=== PATIENT | female | born 1985 | race Caucasian/White ===

== ENCOUNTER 2021-08-17 12:02 | Emergency (ER) | payer MEDICAID ==
[~2021-08-17] VITALS: Ht 175.3 cm; Wt 77.3 kg
[2021-08-17 12:03] VITALS: BP 100/63
[2021-08-17 12:20] LABS: BASOPHILS % (AUTO) 0.5 % (0-1); EOSINOPHILS # (AUTO) 0.2 X10'3 (0-0.9); EOSINOPHILS % (AUTO) 3.1 % (0-6); HEMATOCRIT 42.8 % (35.0-45.0); HEMOGLOBIN 14.3 g/dl (12.0-16.0); LYMPHOCYTES # (AUTO) 2.3 X10'3 (1.1-4.8); LYMPHOCYTES % (AUTO) 38.1 % (21-51); MEAN CORPUSCULAR HEMOGLOBIN 30.3 PG (27.0-31.0); MEAN CORPUSCULAR HGB CONC 33.5 g/dL (33.0-36.5); MEAN CORPUSCULAR VOLUME 90.4 FL (78-98); MEAN PLATELET VOLUME 7.3 FL (7.4-10.4); MONOCYTES # (AUTO) 0.4 X10'3 (0-0.9); MONOCYTES % (AUTO) 6.4 % (2-12); NEUTROPHILS # (AUTO) 3.1 X10'3 (1.8-7.7); NEUTROPHILS % (AUTO) 51.9 % (42-75); PLATELET COUNT 254 X10'3 (140-440); RED BLOOD COUNT 4.73 X10'6 (4.20-5.60); RED CELL DISTRIBUTION WIDTH 12.7 % (11.5-14.5)
[2021-08-17 12:38] LABS: ALANINE AMINOTRANSFERASE 18 U/L (12-78); ALBUMIN 3.3 G/DL (3.4-5.0); ALKALINE PHOSPHATASE 51 IU/L (46-116); ANION GAP 5 (8-16); ASPARTATE AMINO TRANSFERASE 15 U/L (10-37); BILIRUBIN,TOTAL 0.2 MG/DL (0.1-1.0); BLOOD UREA NITROGEN 10 MG/DL (7-18); BUN/CREATININE RATIO 14.7 (6.6-38.0); CALCIUM 8.4 MG/DL (8.5-10.1); CHLORIDE 105 MMOL/L (99-107); CREATININE 0.68 MG/DL (0.40-0.90); GLUCOSE 94 MG/DL (70-104); LIPASE 89 U/L (73-393); POTASSIUM 4.3 MMOL/L (3.5-5.1); SODIUM 141 MMOL/L (135-145); TOTAL CARBON DIOXIDE 30.8 MMOL/L (24-32); TOTAL PROTEIN 6.6 G/DL (6.4-8.2); eGFR > 90 ML/MIN
== END 2021-08-17 13:31 | disposition left against medical advice (07) ==
LOC: ER 12:02
DX: R10.84 Generalized abdominal pain (principal)
CPT/HCPCS: 36415; 80053; 83690; 85025; 99283

== ENCOUNTER 2022-02-08 19:54 | Emergency (ER) | payer MEDICAID ==
[~2022-02-08] VITALS: Ht 172.7 cm; Wt 75.0 kg
[2022-02-08 20:10] VITALS: BP 161/136
[2022-02-08] MEDS ORDERED: ketorolac trometh inj. 60 MG/2 ML VIAL IM ONE (21:55)
[2022-02-08] MEDS ORDERED: cephalexin 250mg capsule PO ONE (21:55)
[2022-02-08] MEDS ORDERED: HYDROcodone/acetaminophen 10/325mg tab PO ONE (21:55)
[2022-02-08] MEDS ORDERED: CEPH250T PO (22:08)
[2022-02-08] MEDS ORDERED: ORPH100T2 PO (22:08)
== END 2022-02-08 22:17 | disposition home or self-care (01) ==
LOC: ER 19:55
DX: M25.551 Pain in right hip (principal); L03.811 Cellulitis of head [any part, except face]; G89.29 Other chronic pain; Z85.41 Personal history of malignant neoplasm of cervix uteri; Z79.2 Long term (current) use of antibiotics; Z79.899 Other long term (current) drug therapy
CPT/HCPCS: 73502; 96372; 99283; J1885

== ENCOUNTER 2022-07-02 23:52 | Emergency (ER) | payer MEDICAID ==
[~2022-07-02] VITALS: Ht 172.7 cm; Wt 77.3 kg
[~2022-07-02 23:52] MED LIST: ORPH100T4 PO
[2022-07-03 00:01] VITALS: BP 140/83
[2022-07-03] MEDS ORDERED: AMOX-580 PO (00:17)
[2022-07-03] MEDS ORDERED: amox tr/potassium clavulanate 875/125mg TAB PO ONE (00:20)
== END 2022-07-03 00:30 | disposition home or self-care (01) ==
LOC: ER 23:53
DX: H66.92 Otitis media, unspecified, left ear (principal)
CPT/HCPCS: 99283